=== PATIENT | female | born 1945 ===

== ENCOUNTER 2019-05-10 06:56 | Day surgery (SDC) | payer MEDICARE, OTHER ==
[~2019-05-10] VITALS: Ht 152.4 cm; Wt 55.8 kg
[2019-05-10] VITALS (7 sets, daily range): BP systolic 121–136; BP diastolic 60–70
[~2019-05-10 06:56] MED LIST: Akten 3.5% 1ml Btl BOTH EYES ONE; Maxitrol Opth Oint 3.5gm BOTH EYES ONE
[2019-05-10] MEDS ORDERED: CALCIUM600 M1 PO (07:33)
[2019-05-10] MEDS ORDERED: ATORVASTATIN CA20 MG ORAL (07:33)
[2019-05-10] MEDS ORDERED: XANAX2 MG ORAL (07:33)
[2019-05-10] MEDS ORDERED: AMLODIPINE BESYL5 MG ORAL (07:33)
[2019-05-10] MEDS ORDERED: ASPIR 8181 MG ORAL (07:33)
[2019-05-10] MEDS ORDERED: VITAMIN D-40400 UNIT ORAL (07:34)
[2019-05-10] MEDS ORDERED: GLUCOSAMINE1000 M1 PO (07:38)
[2019-05-10 08:11] LABS: BASOPHILS % (AUTO) 1.2 % (0.0-2.0); EOSINOPHILS % (AUTO) 1.7 % (0.0-3.0); HEMATOCRIT 37.1 % (37.0-47.0); HEMOGLOBIN 12.9 G/DL (12.0-16.0); MEAN CORPUSCULAR VOLUME 92 FL (80-99); MONOCYTES % (AUTO) 9.3 % (1.0-10.0); NEUTROPHILS % (AUTO) 51.8 % (45.0-75.0); PLATELET COUNT 252 K/UL (150-450); RED BLOOD COUNT 4.04 M/UL (4.20-5.40); RED CELL DISTRIBUTION WIDTH 10.8 % (11.6-14.8); WHITE BLOOD COUNT 5.8 K/UL (4.8-10.8)
[2019-05-10 08:12] LABS: ANION GAP 6 mmol/L (5-15); BLOOD UREA NITROGEN 20 mg/dL (7-18); CALCIUM 9.5 MG/DL (8.5-10.1); CARBON DIOXIDE 31 MMOL/L (21-32); CHLORIDE 102 MMOL/L (98-107); POTASSIUM 4.7 MMOL/L (3.5-5.1); SODIUM 139 MMOL/L (136-145)
[2019-05-10 08:38] LABS: INR 0.9 (0.9-1.1)
[2019-05-10] MEDS ORDERED: LR 1000ml 1,000 ML IVLG SCH (08:47)
--- NOTE | 2019-05-10 08:47 | Anethesia Preoperative Eval ---
Anesthesia Pre-op PMH/ROS General Date of Evaluation: May 10, 2019 Time of Evaluation: 09:07 Anesthesiologist: [place] ASA Score: ASA 3 Mallampati Score Class I : Soft palate, uvula, fauces, pillars visible Class II: Soft palate, uvula, fauces visible Class III: Soft palate, base of uvula visible Class IV: Only hard plate visible Mallampati Classification: Class II Surgeon: Yared Diagnosis: Ptosis, Bilateral Surgical Procedure: Bilateral Blepharoplasty, Ptosis Repair Anesthesia History: none Family History: no anesthesia problems Allergies: Coded Allergies: No Known Allergies (Unverified , 05/10/19) Medications: see eMAR Patient NPO?: Yes Past Medical History Cardiovascular: Reports: HTN, other - HL HEENT: Reports: cataract (L), cataract (R) Musculoskeletal/Integumentary: Reports: OA PSxH Narrative: Cataract SX Anesthesia Pre-op Phys. Exam Physician Exam Last Vital Signs Date Time Temp Pulse Resp B/P (MAP) Pulse Ox O2 Delivery O2 Flow Rate FiO2 05/10/19 07:45 Room Air 05/10/19 07:26 97.8 60 18 129/70 97 Constitutional: NAD Neurologic: CN 2-12 intact Cardiovascular: RRR Respiratory: CTA Gastrointestinal: S/NT/ND Airway Exam Mallampati Score: Class II MO: limited ROM: limited Teeth: missing, intact Anesthesia Pre-op A/P Labs Hematology Test 05/10/19 07:50 White Blood Count 5.8 K/UL (4.8-10.8) Red Blood Count 4.04 M/UL (4.20-5.40) L Hemoglobin 12.9 G/DL (12.0-16.0) Hematocrit 37.1 % (37.0-47.0) Mean Corpuscular Volume 92 FL (80-99) Mean Corpuscular Hemoglobin 31.9 PG (27.0-31.0) H Mean Corpuscular Hemoglobin Concent 34.8 G/DL (32.0-36.0) Red Cell Distribution Width 10.8 % (11.6-14.8) L Platelet Count 252 K/UL (150-450) Mean Platelet Volume 6.4 FL (6.5-10.1) L Neutrophils (%) (Auto) 51.8 % (45.0-75.0) Lymphocytes (%) (Auto) 36.0 % (20.0-45.0) Monocytes (%) (Auto) 9.3 % (1.0-10.0) Eosinophils (%) (Auto) 1.7 % (0.0-3.0) Basophils (%) (Auto) 1.2 % (0.0-2.0) Coagulation Test 05/10/19 07:50 Prothrombin Time 9.8 SEC (9.30-11.50) Prothromb Time International Ratio 0.9 (0.9-1.1) Activated Partial Thromboplast Time 27 SEC (23-33) Chemistry Test 05/10/19 07:50 Sodium Level 139 MMOL/L (136-145) Potassium Level 4.7 MMOL/L (3.5-5.1) Chloride Level 102 MMOL/L (98-107) Carbon Dioxide Level 31 MMOL/L (21-32) Anion Gap 6 mmol/L (5-15) Blood Urea Nitrogen 20 mg/dL (7-18) H Creatinine 1.0 MG/DL (0.55-1.30) Estimat Glomerular Filtration Rate mL/min (>60) Glucose Level 100 MG/DL (74-106) Calcium Level 9.5 MG/DL (8.5-10.1) Risk Assessment & Plan Assessment: ASA 3 Plan: GA Status Change Before Surgery: Peter Arnett MD May 10, 2019 08:47
[2019-05-10] MEDS ORDERED: LR 1000ml ONE (09:00)
[2019-05-10] MEDS ORDERED: Lidocaine 1% MPF 10mg/ml 5ml ONE (09:00)
[2019-05-10] MEDS ORDERED: Metoclopramide 10mg/2ml Inj IVP PRN (09:00)
[2019-05-10] MEDS ORDERED: Sterile Water Irrig 1000ml IRRIG ONE (09:00)
[2019-05-10] MEDS ORDERED: DiphenhydrAMINE 50mg/ml Inj IVP PRN (09:00)
[2019-05-10] MEDS ORDERED: fentaNYL 100 mcg/2 mL IV PRN (09:00)
[2019-05-10] MEDS ORDERED: NS Irrig 1000ml ONE (09:00)
[2019-05-10] MEDS ORDERED: Atropine Sulfate 0.4mg/ml inj IVP PRN (09:00)
[2019-05-10] MEDS ORDERED: Midazolam 2mg/2ml Inj IVP PRN (09:00)
[2019-05-10] MEDS ORDERED: HYDROcodone/Acetamin 7.5/325 tab ORAL PRN (09:00)
[2019-05-10] MEDS ORDERED: Ketorolac 30mg Inj IV PRN ×2 (09:00)
[2019-05-10] MEDS ORDERED: Meperidine 50mg/ml Inj(FOR RIGORS ONLY) IVP PRN (09:00)
[2019-05-10] MEDS ORDERED: oxyCODONE HCL/Acetaminophen 5/325mg ORAL PRN (09:00)
[2019-05-10] MEDS ORDERED: HYDROcodone/Acetamin 5/325 tab ORAL PRN (09:00)
[2019-05-10] MEDS ORDERED: Propofol 200mg/20ml IV ONE (09:00)
[2019-05-10] MEDS ORDERED: Labetalol 5mg/ml 20ml vial IV PRN (09:00)
[2019-05-10] MEDS ORDERED: Hydromorphone 0.5mg/0.5ml inj IVP PRN (09:00)
[2019-05-10] MEDS ORDERED: LORazepam Inj 2mg/ml 1ml IV PRN (09:00)
--- NOTE | 2019-05-10 09:04 | Pre-Procedure Note/Attestation ---
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 I attest that, if there was a reasonable possibility of needing a blood transfusion, the patient (or the patient's legal public service representative) was given the [facility] standardized written summary, pursuant to the Mauri Nasreen Blood Safety Act ([place] Health and Safety Code # 1645, as amended). I attest that I re-evaluated the patient just prior to the surgery and that there has been no change in the patient's H&P, except as documented below: Colton Vail MD May 10, 2019 09:04
[2019-05-10] MEDS ORDERED: Povidone-Iodine 5% opth solution ONE (09:05)
[2019-05-10] MEDS ORDERED: Polysporin Opth Oint 3.5gm ONE (09:05)
[2019-05-10] MEDS ORDERED: Tetracaine 0.5% Opth 4ml Soln ONE (09:05)
[2019-05-10] MEDS ORDERED: BSS 15ml BTL ONE (09:05)
[2019-05-10] MEDS ORDERED: Maxitrol Opth Susp 5ml ONE (09:05)
--- NOTE | 2019-05-10 09:38 | 48 Hour Post Anesthesia Eval ---
Post Anesthesia Evaluation Procedure: Bilateral Blepharoplasty, Ptosis Repair Date of Evaluation: May 10, 2019 Time of Evaluation: 13:14 Blood Pressure Systolic: 134 0: 62 Pulse Rate: 63 Respiratory Rate: 18 Temperature (Fahrenheit): 98.1 O2 Sat by Pulse Oximetry: 97 Airway: patent Nausea: No Vomiting: No Pain Intensity: 0 Hydration Status: adequate Cardiopulmonary Status: Stable Mental Status/LOC: patient returned to baseline Follow-up Care/Observations: 0 Post-Anesthesia Complications: 0 Follow-up care needed: ready to discharge Peter Ho MD May 10, 2019 09:38
--- NOTE | 2019-05-10 09:38 | Immediate Post-Op Evaluation ---
Immediate Post-Op Evalulation Immediate Post-Op Evalulation Procedure: Bilateral Blepharoplasty, Ptosis Repair Date of Evaluation: May 10, 2019 Time of Evaluation: 11:09 IV Fluids: 700 LR Blood Products: 0 Estimated Blood Loss: 10 Urinary Output: 0 Blood Pressure Systolic: 133 Blood Pressure Diastolic: 63 Pulse Rate: 68 Respiratory Rate: 16 O2 Sat by Pulse Oximetry: 97 Temperature (Fahrenheit): 97.3 Pain Score (1-10): 1 Nausea: No Vomiting: No Complications 0 Patient Status: awake, reacts, patent, none Hydration Status: adequate Peter Ho MD May 10, 2019 09:38
--- NOTE | 2019-05-10 11:08 | Discharge Summary ---
Discharge Summary Discharge Summary Discharge Summary DATE OF ADMISSION: 05/10/19 DATE OF DISCHARGE: 05/10/19 REASON FOR HOSPITALIZATION: Blurry vision and difficulty reading and driving SURGERY PERFORMED: 1- Ptosis correction, upper lids 2- Entropion correction, upper lids 3- Blepharoplasty upper lids CONDITION IN THE HOSPITAL:The patient tolerated the surgery without complications. DISCHARGE CONDITION: The patient was stable at discharge. DISCHARGE MEDICATIONS: 1. Vigamox eye drops one drop q.i.d, OU 2. Prednisolone one drop q.i.d, OU 3. Maxitrol ointment apply to the wounds POSTOPERATIVE ORDERS: The patient has to rest at home. No bending, No lifting, No watching Television tonight. POSTOPERATIVE FOLLOW UP: The patient will be followed in my office tomorrow morning at 7 o'clock. Colton Vail MD May 10, 2019 11:08
--- NOTE | 2019-05-10 11:08 | Pre-Procedure Note/Attestation ---
Pre-Procedure Note/Attestation Complete Prior to Procedure Planned Procedure: bilateral Indications for Procedure Pre-Operative Diagnosis: 1- Ptosis upper lids 2- Entropion upper lids 3- Dermatochlasis and blepharochlasis, upper lids Attestation I attest that I discussed the nature of the procedure; its benefits; risks and complications; and alternatives (and the risks and benefits of such alternatives ), prior to the procedure, with the patient (or the patient's legal auto service representative). I attest that, if there was a reasonable possibility of needing a blood transfusion, the patient (or the patient's legal auto service representative) was given the [facility] standardized written summary, pursuant to the Mauri Nasreen Blood Safety Act ([place] Health and Safety Code # 1645, as amended). I attest that I re-evaluated the patient just prior to the surgery and that there has been no change in the patient's H&P, except as documented below: Colton Vail MD May 10, 2019 11:08
--- NOTE | 2019-05-10 11:12 | Brief Operative Note ---
Immediate Post Operative Note Operative Note Chief Complaint: Blurry vision, Difficulty reading and driving Pre-op Diagnosis: 1- Ptosis upper lids 2- Entropion upper lids 3- Dermatochlasis and blepharochlasis, upper lids Procedure: 1- Ptosis correction, upper lids 2- Entropion correction, upper lids 3- Blepharoplasty, upper lids Post-op Diagnosis: same as pre-op Surgeon: Colton Vail MD Trial Manager: None Additional Surgeons: None Anesthesiologist: Dr. Obrien Anesthesia: local, MAC Specimen: none Complications: none Condition: stable Fluids: 300 ml Estimated Blood Loss: minimal Drains: none Packing: none Implant(s) used?: No Colton Vail MD May 10, 2019 11:12
--- NOTE | 2019-05-10 13:30 | Pre-op HX & Phy Repo 2 SIG ---
DATE OF ADMISSION: 05/10/2019 PRESURGICAL INTERNAL MEDICINE HISTORY AND PHYSICAL REASON FOR EVALUATION: I was asked by Dr. Colton Vail to see this 74-year-old Farsi-speaking female, who is going for elective surgery on both eyes. The patient has bilateral ptosis in both eyes. See full Ophthalmology History and Physical by Dr. Colton Vail. The patient was evaluated for an outpatient procedure, [facility]. PAST MEDICAL HISTORY AND REVIEW OF SYSTEMS: Remarkable for hypertension, hyperlipidemia, degenerative joint disease of the hands, and insomnia. No history of stroke or seizures. Denies history of heart attack, chest pain, or palpitation. No arrhythmia. No history of diabetes mellitus. No thyroid problems. Denies history of renal insufficiency. The patient does have hand osteoarthritis and insomnia. PAST SURGICAL HISTORY: , bilateral cataract extraction in both eyes. FAMILY HISTORY: Father has hypertension. Mother at young age, cause unknown. ALLERGIES: Not known. PRESENT MEDICATIONS: Include amlodipine, baby aspirin, atorvastatin, calcium supplement, alprazolam, vitamin D, and glucosamine. SOCIAL HISTORY: The patient denies history of smoke or alcohol habits. No street drugs. PHYSICAL EXAMINATION: GENERAL: Alert, well-developed, well-nourished female, in her 70s. Information obtained through the son, bedside translation. VITAL SIGNS: Blood pressure 129/70, temperature 97.8, pulse 60 regular, O2 saturation 97% on room air. SKIN: Warm, clear, dry. No rashes. LYMPHATICS: Lymph nodes not enlarged. HEENT: Head, normocephalic and atraumatic. Ears, clear. No discharge. Eyes, full description per Dr. Colton Vail. Mouth, clear and moist. Dental implants. NECK: Supple. No jugular venous distention. Carotids artery +2. No palpable mass. CHEST: No deformity or asymmetry. LUNGS: Clear to auscultation to percussion. No rales or rhonchi. HEART: Sinus rhythm. No ectopy. No murmur. No S3 or S4. Tendency to bradycardia. ABDOMEN: Soft, benign. Liver and spleen not enlarged. No rebound. EXTREMITIES: No peripheral edema. No varicose vein. No calf tenderness. Hand joint, small joint deformity. NERVOUS SYSTEM: No tremor. No nystagmus. GENITOURINARY TRACT: Denies dysuria or CVA tenderness. DIAGNOSTIC AND LABORATORY DATA: Electrocardiogram, sinus bradycardia, 57 per minute, otherwise normal ECG. The patient did not eat or drink from midnight last night. Laboratory obtained and results are pending. IMPRESSION: 1. Bilateral ptosis, both eyes. 2. Hypertension, controlled. 3. Degenerative joint disease of the hand. 4. Hyperlipidemia. 5. History of insomnia. PLAN: Bilateral blepharoplasty by Dr. Colton Vail. CONCLUSION: The patient is a 74-year-old Farsi-speaking female with history of hypertension, presently controlled on medications. The patient did not eat or drink from midnight last night. The patient's condition optimized for surgery. Thank you very much, Dr. Vail, for privilege to participate in presurgical care of this interesting patient. Maricarmen Ramírez M.D. DR: ZOHRA JOB#: [id number] CC:
--- NOTE | 2019-05-11 03:45 | Operative Note - Dictated ---
DATE OF OPERATION: 05/10/2019 SURGEON: Colton Vail M.D. SALESPERSON TOY TRAINS AND ACCESSORIES: None. ANESTHESIOLOGIST: Peter Ho M.D. ANESTHESIA: Monitored anesthesia care (MAC) local anesthesia with lidocaine 2% and epinephrine 1:100,000. PREOPERATIVE DIAGNOSES: 1. Ptosis, upper lids. 2. Entropion, upper lids. 3. Dermatochalasis and blepharochalasis, upper lids. POSTOPERATIVE DIAGNOSES: 1. Ptosis, upper lids. 2. Entropion, upper lids. 3. Dermatochalasis and blepharochalasis, upper lids. SURGERY PERFORMED: 1. Ptosis correction, upper lids. 2. Entropion correction, upper lids. 3. Blepharoplasty, upper lids. INDICATION FOR SURGERY: The patient is a 74-year-old lady with history of high blood pressure and hypercholesteremia. The patient is getting dicyclomine 10 mg, nitroglycerin 0.4 mg, esomeprazole magnesium 20 mg , alprazolam 0.5 mg, atorvastatin 10 mg, amlodipine . She is not a smoker, but she drinks at sometimes. She is not employed. She is and lives with family. She has had cataract surgery in both eyes in 2010 and now she is complaining of blurry vision and difficulty driving because of upper eyelid droopiness. She is suffering from severe blepharochalasis, ptosis and entropion in the upper lids. This is a progressive dermatochalasis skin disease with resulting change of corneal curvature and induces astigmatism and covering the visual axis, which is interruption for driving. The severity of the patient's dermatochalasis, ptosis, and entropion is clearly demonstrated in enclosed photos and the patient's visual ashton. The only solution for this patient is correction of all those disfigurements and anatomy changes with surgery. There is no other alternatives for that. INFORMED CONSENT: The nature of the surgery, risks, benefits, and potential complications were all explained in detail to the patient in her language Farsi. She voiced understanding. The potential complications including, but not limited to bleeding, infection, corneal exposure, over correction, under correction, ecchymosis, swelling of the face, hematoma, dry eye syndrome, loss of lashes, loss of eyebrows, and inequality of both eyes, change in vision, even loss of vision, loss of the eyes were all explained in detail to the patient, who voiced understanding and accepted all the complications. Then, she signed the consent form, which is in the chart. DESCRIPTION OF SURGERY AND FINDINGS: Following that the patient was taken to the operating room in stable condition. Lidocaine gel Akten 3.5% were applied to the conjunctiva of both eyes. Following that, the upper lids were marked with a marking pen 10 mm above the root of the eyelashes and 6 mm below the lower part of the eyebrows. About 25 mm of the skin was left to facilitate eye closure. IV sedation was given by the anesthesiologist , Dr. Ho. After adequate anesthesia and sedation had been achieved, the eyelids and eyebrows were all anesthetized with 2% lidocaine and epinephrine 1:100,000 . Following that using a Bovie knife, the skin and subdermal tissue were dissected from the orbicularis oculi muscle and excised. A cut was made into the orbicularis oculi muscle and hemostasis was performed. Following that, two fat compartments were released. The fat compartments did not sculptured but nasal fat compartments were transferred to the area in the middle of the incision because the patient lost lot of fat in this area and with 6-0 Vicryl. Following that hemostasis was performed. Following that the levator palpebrae superioris muscle were dissected to the aponeurosis of the muscle and the aponeurosis of the muscle were tacked about 6 mm on each side and stitched with 6-0 Vicryl and then cleaned the sutures and hemostasis was performed. Following that a wedge groove was made 3 mm above the root of the upper eyelid lashes. Following that the tarsal plate inside the groove was excised using Vannas scissors. Following that the lids of the groove were stitched together with 6-0 Vicryl and then the suture was trimmed and hemostasis was performed. At the end, the orbicularis oculi muscle was stitched with 6-0 Vicryl to perform . At the end of the surgery, the skin was closed with 6-0 plain gut in the fashion of continuous running stitch. The same procedure was performed on the left eye. The patient tolerated the surgery without complications. At the end of the surgery, the Maxitrol eye ointment was applied to the wound and wet gauze applied to the area. Following that the patient was transferred to the recovery room. In the recovery room, the area was checked for bleeding. There was no bleeding. Postop orders and directions were given to the patient. Cold compresses were applied to the wound. The patient will be discharged home upon stabilization. The patient will be followed in my office tomorrow morning. Colton Vail M.D. DR: Gregor JOB#: [id number] CC:
== END 2019-05-10 12:25 | disposition home or self-care (01) ==
LOC: SUR 06:56
DX: H02.403 Unspecified ptosis of bilateral eyelids (principal); H02.004 Unspecified entropion of left upper eyelid; H02.001 Unspecified entropion of right upper eyelid; H02.834 Dermatochalasis of left upper eyelid; H02.831 Dermatochalasis of right upper eyelid; H02.34 Blepharochalasis left upper eyelid; H02.31 Blepharochalasis right upper eyelid; I10 Essential (primary) hypertension; E78.00 Pure hypercholesterolemia, unspecified; Z79.899 Other long term (current) drug therapy; E78.5 Hyperlipidemia, unspecified; M19.042 Primary osteoarthritis, left hand; M19.041 Primary osteoarthritis, right hand; G47.00 Insomnia, unspecified; Z79.82 Long term (current) use of aspirin
CPT/HCPCS: 15822; 36415; 67923; 80048; 85025; 85610; 85730; 93005; J1885; J2704; 94003; 94150